=== PATIENT | female | born 1955 | race Two or more races ===

== ENCOUNTER 2021-05-22 23:55 | Inpatient (IN) | payer MEDICAID ==
[~2021-05-22] VITALS: Ht 165.1 cm; Wt 63.0 kg
[2021-05-23] MEDS ORDERED: FUROSEMIDE 40MG/4ML VIAL IVP ONE (00:15)
[2021-05-23] MEDS ORDERED: MORPHINE SULFATE 4 MG/ML CPJ (NOT FOR IM USE) IV ONE (00:15)
[2021-05-23] MEDS ORDERED: DILTIAZEM HCL 5MG/ML 5ML VIAL IV ONE ×2 (00:15→00:45)
[2021-05-23] MEDS ORDERED: ASPIRIN 81MG TABLET PO ONE (00:15)
[2021-05-23] MEDS ORDERED: NITROGLYCERIN OINT 1GM/INCH UDPKT TD ONE (00:15)
[2021-05-23 00:51] LABS: BASOPHILS % 0.5 % (0.0-2.0); EOSINOPHILS % 1.3 % (0.0-5.0); HEMATOCRIT. 38.9 % (36.0-48.0); HEMOGLOBIN. 13.5 g/dL (12.0-16.0); LYMPHOCYTES % 39.2 % (20.0-50.0); MEAN CORPUSCULAR HEMOGLOBIN 33.4 pg (28.0-32.0); MEAN CORPUSCULAR VOLUME 96.5 fL (81.0-99.0); MEAN PLATELET VOLUME 9.8 fl (7.4-10.4); MONOCYTES % 4.1 % (2.0-8.0); NEUTROPHILS % 54.9 % (40.0-76.0); PLATELET 209 x1000/uL (130-400); RED BLOOD CELL COUNT 4.03 mill/uL (4.2-5.4)
[2021-05-23 00:58] LABS: CHLORIDE 109 mEq/L (98-107)
[2021-05-23 01:01] LABS: ETHANOL BLOOD < 10 mg/dL
[2021-05-23] MEDS ORDERED: CALCIUM GLUCONATE 100MG/ML 10ML VIAL IV NR (01:15)
[2021-05-23 01:27] LABS: PROTHROMBIN TIME 11.1 sec (9.6-11.0)
[2021-05-23 02:59] LABS: CLARITY URINE CLEAR (CLEAR); COLOR URINE YELLOW (YELLOW); KETONES URINE NEGATIVE (NEGATIVE); LEUKOCYTE ESTERASE URINE NEGATIVE (NEGATIVE); NITRITE URINE NEGATIVE (NEGATIVE); OCCULT BLOOD URINE NEGATIVE (NEGATIVE); PH URINE 5.5 (4.5-8.0); PROTEIN URINE 1+ (NEGATIVE); SPECIFIC GRAVITY URINE 1.005 (1.005-1.030); UROBILINOGEN URINE 0.2 E.U./dL (0.2-1.0)
[2021-05-23 03:12] LABS: *AMPHETAMINES SCREEN URINE NEGATIVE (NEGATIVE); *BARBITURATES SCREEN URINE NEGATIVE (NEGATIVE); *BENZODIAZEPINES SCREEN URINE NEGATIVE (NEGATIVE); *COCAINE SCREEN URINE NEGATIVE (NEGATIVE); METHADONE URINE SCREEN NEGATIVE (NEGATIVE); OPIATES URINE SCREEN PRESUMTIVE POSITIVE (NEGATIVE)
[2021-05-23 03:13] LABS: CANNABINOID URINE SCREEN NEGATIVE (NEGATIVE); PHENCYCLIDINE URINE SCREEN NEGATIVE (NEGATIVE)
[2021-05-23] MEDS ORDERED: ACETAMINOPHEN 325MG TABLET PO PRN (09:00)
[2021-05-23] MEDS ORDERED: ONDANSETRON HCL 4MG/2ML INJ IV PRN (09:00)
[2021-05-23] MEDS ORDERED: CLONIDINE 0.1MG TABLET PO PRN (09:00)
[2021-05-23] MEDS ORDERED: MORPHINE SULFATE 2 MG/ML CPJ (NOT FOR IM USE) IV PRN (09:00)
[2021-05-23] MEDS ORDERED: DIPHENHYDRAMINE 50MG/ML VIAL IV PRN (09:00)
[2021-05-23] MEDS ORDERED: HYDROCODONE/ACETAMINOPHEN 5/325MG TABLET PO PRN (09:00)
[2021-05-23] MEDS ORDERED: LORAZEPAM 2MG/ML CPJ IV PRN (09:00)
[2021-05-23] MEDS ORDERED: IPRATROPIUM/ALBUTEROL 0.5-3(2.5)MG/3ML NEB HHN PRN (09:00)
[2021-05-23] MEDS ORDERED: MAGNESIUM/ALUMINUM HYDROXIDE/SIMETHICONE 30ML UDC PO PRN (09:00)
[2021-05-23] MEDS ORDERED: GUAIFENESIN 200MG/10ML SUGAR FREE UDC PO PRN (09:00)
[2021-05-23] MEDS ORDERED: HYDRALAZINE 20MG/ML VIAL IV PRN (09:00)
[2021-05-23] MEDS ORDERED: DOCUSATE SODIUM 100MG CAPSULE PO PRN (09:00)
[2021-05-23] MEDS: ENOXAPARIN 40MG/0.4ML SYR SUBCUT SCH (10:32)
[2021-05-23] MEDS: SODIUM CHLORIDE 0.9% INJ 3ML FLUSH IVF SCH ×2 (14:04→23:20)
[2021-05-23] MEDS ORDERED: ALBUTEROL 6.7GM HFA INHALER ORI PRN (14:30)
[2021-05-23] MEDS: METHYLPREDNISOLONE SOD SUCC 40 MG/ML VIAL IV SCH ×2 (14:47→23:20)
[2021-05-23 15:33] LABS: CREATINE KINASE MB FRACTION 2.4 ng/mL (0.5-3.6)
[2021-05-23] MEDS: FUROSEMIDE 40MG/4ML VIAL IVP SCH (17:14)
[2021-05-23] MEDS: IPRATROPIUM/ALBUTEROL 0.5-3(2.5)MG/3ML NEB HHN SCH (19:55)
[2021-05-23 21:25] VITALS: BP 118/66
[2021-05-23 21:30] VITALS: BP 118/66
[2021-05-23] MEDS ORDERED: IOHEXOL-350 100 ML BOTTLE ONE (23:16)
[2021-05-23] MEDS: ATORVASTATIN CALCIUM 10MG TABLET PO SCH (23:20)
[2021-05-24 00:13] VITALS: BP 90/44
[2021-05-24 00:30] LABS: CREATINE KINASE MB FRACTION 1.4 ng/mL (0.5-3.6)
[2021-05-24] MEDS ORDERED: ALBUTEROL (0.083%) 2.5MG/3ML NEB HHN PRN (01:15)
[2021-05-24] MEDS: IPRATROPIUM/ALBUTEROL 0.5-3(2.5)MG/3ML NEB HHN SCH ×3 (01:42→20:49)
[2021-05-24] MEDS: METHYLPREDNISOLONE SOD SUCC 40 MG/ML VIAL IV SCH ×3 (05:37→21:28)
[2021-05-24] MEDS: SODIUM CHLORIDE 0.9% INJ 3ML FLUSH IVF SCH ×3 (05:37→21:28)
[2021-05-24 06:55] LABS: HEMATOCRIT. 38.9 % (36.0-48.0); HEMOGLOBIN. 13.8 g/dL (12.0-16.0); MEAN CORPUSCULAR HEMOGLOBIN 33.9 pg (28.0-32.0); MEAN CORPUSCULAR VOLUME 95.7 fL (81.0-99.0); MEAN PLATELET VOLUME 10.5 fl (7.4-10.4); PLATELET 169 x1000/uL (130-400); RED BLOOD CELL COUNT 4.07 mill/uL (4.2-5.4); RED CELL DISTRIBUTION WIDTH 12.9 % (11.6-14.6)
[2021-05-24] MEDS: FUROSEMIDE 40MG/4ML VIAL IVP SCH ×2 (06:58→17:16)
[2021-05-24 07:06] LABS: CHLORIDE 106 mEq/L (98-107)
[2021-05-24 08:00] VITALS: BP 109/75
[2021-05-24] MEDS: ENOXAPARIN 40MG/0.4ML SYR SUBCUT SCH (08:45)
[2021-05-24 12:00] VITALS: BP 105/63
[2021-05-24 14:00] LABS: PLATELET ESTIMATE NORMAL
[2021-05-24 16:00] VITALS: BP 104/54
[2021-05-24 20:00] VITALS: BP 102/54
[2021-05-24] MEDS: ATORVASTATIN CALCIUM 10MG TABLET PO SCH (21:28)
[2021-05-24 23:37] VITALS: BP 98/51
[2021-05-25] MEDS: IPRATROPIUM/ALBUTEROL 0.5-3(2.5)MG/3ML NEB HHN SCH ×4 (01:37→21:37)
[2021-05-25 04:00] VITALS: BP 110/63
[2021-05-25] MEDS: FUROSEMIDE 40MG/4ML VIAL IVP SCH ×2 (06:25→17:43)
[2021-05-25] MEDS: METHYLPREDNISOLONE SOD SUCC 40 MG/ML VIAL IV SCH ×3 (06:25→21:01)
[2021-05-25] MEDS: SODIUM CHLORIDE 0.9% INJ 3ML FLUSH IVF SCH ×3 (06:26→21:01)
[2021-05-25 07:56] LABS: HEMATOCRIT. 37.3 % (36.0-48.0); MEAN CORPUSCULAR HEMOGLOBIN 32.9 pg (28.0-32.0); MEAN CORPUSCULAR VOLUME 94.4 fL (81.0-99.0); MEAN PLATELET VOLUME 10.2 fl (7.4-10.4); PLATELET 180 x1000/uL (130-400); RED BLOOD CELL COUNT 3.95 mill/uL (4.2-5.4); RED CELL DISTRIBUTION WIDTH 12.7 % (11.6-14.6)
[2021-05-25 08:00] VITALS: BP 102/61
[2021-05-25] MEDS: ENOXAPARIN 40MG/0.4ML SYR SUBCUT SCH (08:12)
[2021-05-25 12:00] VITALS: BP 101/60
[2021-05-25 14:25] LABS: PLATELET ESTIMATE NORMAL
[2021-05-25 16:00] VITALS: BP 103/64
[2021-05-25 20:00] VITALS: BP 119/58
[2021-05-25] MEDS: ATORVASTATIN CALCIUM 10MG TABLET PO SCH (21:00)
[2021-05-25] MEDS: CARVEDILOL 3.125 MG TABLET PO SCH (21:00)
[2021-05-26] VITALS: BP 116/60
[2021-05-26] MEDS: IPRATROPIUM/ALBUTEROL 0.5-3(2.5)MG/3ML NEB HHN SCH ×4 (00:56→21:08)
[2021-05-26 04:00] VITALS: BP 109/54
[2021-05-26] MEDS: SODIUM CHLORIDE 0.9% INJ 3ML FLUSH IVF SCH ×3 (06:42→20:56)
[2021-05-26] MEDS: FUROSEMIDE 40MG/4ML VIAL IVP SCH ×2 (06:42→16:46)
[2021-05-26] MEDS: METHYLPREDNISOLONE SOD SUCC 40 MG/ML VIAL IV SCH ×3 (06:42→20:55)
[2021-05-26 08:00] VITALS: BP 108/60
[2021-05-26] MEDS: ENOXAPARIN 40MG/0.4ML SYR SUBCUT SCH (08:28)
[2021-05-26] MEDS: CARVEDILOL 3.125 MG TABLET PO SCH (08:28)
[2021-05-26 12:00] VITALS: BP 112/57
[2021-05-26 16:00] VITALS: BP 104/57
[2021-05-26 20:00] VITALS: BP 113/63
[2021-05-26] MEDS: ASPIRIN 81MG EC TABLET PO SCH (20:55)
[2021-05-26] MEDS: ATORVASTATIN CALCIUM 10MG TABLET PO SCH (20:55)
[2021-05-26] MEDS: CARVEDILOL 6.25 MG TABLET PO SCH (20:55)
[2021-05-27] VITALS: BP 115/66
[2021-05-27] MEDS: IPRATROPIUM/ALBUTEROL 0.5-3(2.5)MG/3ML NEB HHN SCH ×4 (01:43→20:40)
[2021-05-27 04:00] VITALS: BP 107/61
[2021-05-27] MEDS: FUROSEMIDE 40MG/4ML VIAL IVP SCH ×2 (06:17→16:51)
[2021-05-27] MEDS: SODIUM CHLORIDE 0.9% INJ 3ML FLUSH IVF SCH ×3 (06:17→21:00)
[2021-05-27] MEDS: METHYLPREDNISOLONE SOD SUCC 40 MG/ML VIAL IV SCH ×3 (06:17→21:00)
[2021-05-27 08:00] VITALS: BP 112/69
[2021-05-27] MEDS: ENOXAPARIN 40MG/0.4ML SYR SUBCUT SCH (09:44)
[2021-05-27] MEDS: ASPIRIN 81MG EC TABLET PO SCH (09:44)
[2021-05-27] MEDS: CARVEDILOL 6.25 MG TABLET PO SCH ×2 (09:44→21:00)
[2021-05-27 12:00] VITALS: BP 129/52
[2021-05-27] MEDS: LISINOPRIL 2.5MG TABLET PO SCH (12:45)
[2021-05-27 16:00] VITALS: BP 110/57
[2021-05-27 20:00] VITALS: BP 106/65
[2021-05-27] MEDS: ATORVASTATIN CALCIUM 10MG TABLET PO SCH (21:00)
[2021-05-28] VITALS: BP 101/57
[2021-05-28] MEDS: IPRATROPIUM/ALBUTEROL 0.5-3(2.5)MG/3ML NEB HHN SCH (02:23)
[2021-05-28 04:00] VITALS: BP 98/60
[2021-05-28] MEDS: SODIUM CHLORIDE 0.9% INJ 3ML FLUSH IVF SCH ×3 (06:21→21:05)
[2021-05-28] MEDS: FUROSEMIDE 40MG/4ML VIAL IVP SCH ×2 (06:21→17:54)
[2021-05-28] MEDS: METHYLPREDNISOLONE SOD SUCC 40 MG/ML VIAL IV SCH ×3 (06:21→21:05)
[2021-05-28 06:47] LABS: BASOPHILS % 0.1 % (0.0-2.0); HEMATOCRIT. 42.8 % (36.0-48.0); HEMOGLOBIN. 15.3 g/dL (12.0-16.0); LYMPHOCYTES % 9.3 % (20.0-50.0); MEAN CORPUSCULAR HEMOGLOBIN 33.9 pg (28.0-32.0); MEAN CORPUSCULAR VOLUME 94.9 fL (81.0-99.0); MEAN PLATELET VOLUME 10.3 fl (7.4-10.4); MONOCYTES % 3.5 % (2.0-8.0); NEUTROPHILS % 87.1 % (40.0-76.0); PLATELET 190 x1000/uL (130-400); RED BLOOD CELL COUNT 4.51 mill/uL (4.2-5.4); RED CELL DISTRIBUTION WIDTH 12.5 % (11.6-14.6)
[2021-05-28 08:00] VITALS: BP 116/74
[2021-05-28] MEDS: CARVEDILOL 6.25 MG TABLET PO SCH ×2 (08:39→21:05)
[2021-05-28] MEDS: LISINOPRIL 2.5MG TABLET PO SCH (08:40)
[2021-05-28] MEDS: ASPIRIN 81MG EC TABLET PO SCH (08:40)
[2021-05-28] MEDS: ENOXAPARIN 40MG/0.4ML SYR SUBCUT SCH (08:41)
[2021-05-28] MEDS ORDERED: REGADENOSON 0.4 MG/5 ML IV NR (09:00)
[2021-05-28] MEDS ORDERED: REGADENOSON 0.4 MG/5 ML IV ONE (09:39)
[2021-05-28 12:00] VITALS: BP 110/70
[2021-05-28 16:00] VITALS: BP 106/60
[2021-05-28 20:00] VITALS: BP 109/72
[2021-05-28] MEDS: ATORVASTATIN CALCIUM 10MG TABLET PO SCH (21:05)
[2021-05-29] VITALS: BP 105/66
[2021-05-29 04:00] VITALS: BP 100/54
[2021-05-29] MEDS: METHYLPREDNISOLONE SOD SUCC 40 MG/ML VIAL IV SCH (06:16)
[2021-05-29] MEDS: FUROSEMIDE 40MG/4ML VIAL IVP SCH (06:16)
[2021-05-29] MEDS: SODIUM CHLORIDE 0.9% INJ 3ML FLUSH IVF SCH (06:16)
[2021-05-29 08:00] VITALS: BP 106/66
[2021-05-29] MEDS: LISINOPRIL 2.5MG TABLET PO SCH (09:00)
[2021-05-29] MEDS: ENOXAPARIN 40MG/0.4ML SYR SUBCUT SCH (10:47)
[2021-05-29] MEDS: CARVEDILOL 6.25 MG TABLET PO SCH (10:48)
[2021-05-29] MEDS: ASPIRIN 81MG EC TABLET PO SCH (10:48)
[2021-05-29 12:00] VITALS: BP 109/67
[2021-05-29 12:17] VITALS: BP 106/66
== END 2021-05-29 13:10 | disposition home or self-care (01) | DRG 133 ==
LOC: ER 23:55 → 7WST 05-23 02:19 → CANRESERV 05-23 07:19 → ENRESERV 05-23 07:19 → EDBEDREQSVC 05-23 11:56 → EDBEDREQ 05-23 11:57 → EDBEDREQTM 05-23 19:36 → ENRESERV 05-23 20:35 → 5WST 05-24 00:40
PROVIDERS: ADMIT Internal Medicine; ATTEND Internal Medicine
PROC: 5A09357 Assistance with Respiratory Ventilation, Less than 24 Consecutive Hours, Continuous Positive Airway Pressure (ICD-10-PCS; principal; 2021-05-23)
DX: J96.01 Acute respiratory failure with hypoxia (principal); I50.23 Acute on chronic systolic (congestive) heart failure; J18.9 Pneumonia, unspecified organism; I11.0 Hypertensive heart disease with heart failure; I42.0 Dilated cardiomyopathy; E78.5 Hyperlipidemia, unspecified; F17.210 Nicotine dependence, cigarettes, uncomplicated; I08.0 Rheumatic disorders of both mitral and aortic valves; I48.91 Unspecified atrial fibrillation; Z20.822 Contact with and (suspected) exposure to COVID-19; R73.9 Hyperglycemia, unspecified; R00.0 Tachycardia, unspecified; R74.01 Elevation of levels of liver transaminase levels
CPT/HCPCS: 36415; 71045; 71275; 78452; 80048; 80053; 80061; 80305; 80320; 81003; 82550; 82553; 83036; 83735; 83880; 84443; 84484; 85025; 85379; 93005; 93306; 93970; 94640; 99285; A4565; A9500; J0610; J1650; J1940; J2270; J2785; J2920; J3490; Q9967; U0003; U0005; G0480